=== PATIENT | male | born 1960 | race Caucasian/White ===

== ENCOUNTER 2017-06-28 08:07 | Day surgery (SDC) | payer OTHER ==
--- NOTE | 2017-06-27 21:30 | HP ---
PREOPERATIVE HISTORY AND PHYSICAL: DATE OF SURGERY/ADMISSION: 06/28/17 [facility] ATTENDING SURGEON: Venecia Stoddard MD * (DICTATED BY MARCELINA CORCORAN) PROCEDURE: Right ring finger flexor tendon repair. CHIEF COMPLAINT: Right ring finger flexor tendon rupture. HISTORY OF PRESENT ILLNESS: This is a 56-year-old male who injured his right ring finger on 06/20/17. 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 After that, he was not able to bend his finger all the way. He was seen initially at [facility] and had x-rays taken, which showed a fracture of the distal phalanx on the volar aspect. The fracture is minimally displaced. The patient was referred to Dr. Stoddard for followup and further treatment considerations. The patient denies any associated numbness or tingling. After review of x-rays and evaluation by Dr. Stoddard, it is recommended he undergo surgical intervention at this time in the form of a right ring finger flexor tendon repair. The patient has consented to proceed. PAST MEDICAL HISTORY: Unremarkable. PAST SURGICAL HISTORY: Appendectomy. CURRENT MEDICATIONS: None. ALLERGIES: No known drug allergies. FAMILY HISTORY: Heart disease and hypertension. 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 He denies tobacco use and recreational drug use. He does admit to alcohol use on occasion. REVIEW OF SYSTEMS: General: Negative for fevers, chills, or night sweats. No known anesthesia problems. HEENT: Negative for headache, lightheadedness, or syncopal episodes. Integumentary: Negative for abrasions, lesions, or open wounds. Cardiothoracic: Negative for hypertension, chest pain, palpitations, or edema. Pulmonary: Negative for shortness of breath with exertion, chronic cough, or COPD. GI: Negative for nausea, vomiting, diarrhea, constipation, or GERD. : Negative for nocturia, urinary frequency, urgency, history of UTIs, or kidney problems. Musculoskeletal: Positive for current complaint. Negative for chronic or intermittent back pain or history of fractures. Neurological: Negative for paresthesias, numbness, history of seizure, stroke, or epilepsy. Endocrine: Negative for diabetes and thyroid issues. Hematologic : Negative for easy bruising, anemia, excessive bleeding, or history of DVT. Infectious Disease: Negative for history of MRSA, hepatitis C, or HIV. PHYSICAL EXAMINATION GENERAL: Well-developed, well-nourished 56-year-old male in no acute distress. VITAL SIGNS: Height 5 feet 3 inches, weight 155 pounds. Pulse rate 72, blood pressure 108/74. HEENT: Normocephalic and atraumatic. Pupils are equal, round, and reactive to light and accommodation. Extraocular movements intact. NECK: Supple. No palpable lymph nodes. Throat is clear. PULMONARY: Lungs are clear to auscultation bilaterally. No wheezes, rales, or rhonchi. CARDIOVASCULAR: Regular rate and rhythm. S1 and S2. No murmurs, rubs, or gallops. No edema. ABDOMEN: Positive bowel sounds, soft, and nontender. NEUROLOGIC: Alert and oriented x3. Cranial nerves II through XII are intact. SENSATION: Intact to light touch. MUSCULOSKELETAL: On exam of his right ring finger, there is mild swelling along the length. He has active PIP joint flexion, but no active DIP joint flexion. He does have passive DIP flexion and is able to fully extend. His neurovascular function is intact. Skin is intact. IMAGING STUDIES: AP, lateral, and oblique of the right ring finger show a fracture where the flexor digitorum profundus tendon inserts on the distal phalanx. It is minimally displaced and not retracted. ASSESSMENT: Flexor digitorum profundus rupture of right ring finger with fracture fragments. PLAN/RECOMMENDATIONS: The patient is scheduled to undergo a right ring finger flexor tendon repair with Dr. Stoddard on 06/28/17. He will return to the office 10 to 14 days postop for followup and suture removal. A prescription for [place] was e- scribed to the patient's pharmacy for postoperative pain management. MARCELINA CORCORAN [id number]/[facility] #: [id number] ROSIE
[~2017-06-28 08:07] MED LIST: Buffered Lidocaine 0.9% SYRIN* 5 ML/SYR SYRINGE INTRADERM ONE
[2017-06-28] MEDS ORDERED: ceFAZolin 2 GM PREMIX(*) 2 GM/50 ML BAG IVPB ONE (08:33)
[2017-06-28] MEDS ORDERED: Midazolam* 1 MG/ML 5 ML VIAL (5 MG) ONE (09:46)
[2017-06-28] MEDS ORDERED: Lidocaine 1% INJ* 10 MG/ML 30 ML SDV ONE ×2 (09:52→10:00)
[2017-06-28] MEDS ORDERED: fentaNYL* 50 MCG/ML 2 ML VIAL (100 MCG VIAL) ONE (10:02)
[2017-06-28 11:00] VITALS: BP 104/69
[2017-06-28] MEDS ORDERED: Propofol* 10 MG/ML 20 ML BTL IV PUSH ONE (11:01)
--- NOTE | 2017-06-29 04:53 | OP ---
DATE OF OPERATION: 06/28/17 - [facility] DATE OF : 62 SURGEON: Venecia Stoddard MD GUEST SERVICES ASSISTANT: MARCELINA Ramirez ANESTHESIOLOGIST: Elvin Peters MD ANESTHESIA: Local, MAC. PRE-OP DIAGNOSIS: Flexor tendon rupture of the right ring finger. POST-OP DIAGNOSIS: Flexor tendon rupture of the right ring finger. OPERATIVE PROCEDURE: Flexor tendon repair, right ring finger. ESTIMATED BLOOD LOSS: Zero. TOURNIQUET TIME: About 45 minutes. INDICATION FOR PROCEDURE: Oswaldo is a 56-year-old male who was trying to start his lawnmower, it pulled back and caused an injury to his right ring finger. Since then, he cannot flex the DIP joint of his right ring finger. X-ray shows a large fracture avulsion fragment attached to his FDP tendon, and he cannot actively flex his right ring finger DIP joint. He presents for right ring finger flexor tendon repair. DESCRIPTION OF PROCEDURE: The patient was brought to the operating room, was given a sedation anesthetic and a digital block with 10 cc of 1% plain lidocaine. Skin of his right hand and forearm was prepped and draped in the usual sterile fashion. The hand and forearm were exsanguinated and the tourniquet elevated to 250 mmHg. A Brandy incision was made across the DIP flexion crease of the right ring finger. We dissected sharply down to the flexor tendon sheath. There was an avulsion fracture of the distal phalanx at the attachment of the FDP tendon. The tendon was in good condition and was well attached to the fragment. We were able to flip the fragment back down and reduced the fracture nicely. The flexor tendon sheath was intact. Two 4-0 Prolene sutures were used to make a grasping suture of the flexor tendon, one was placed through the bony fragment and the other over top of the bony fragment. We then drilled two holes through the distal phalanx out on to the fingernail with Kartik needles and the sutures were passed through the bone tunnels and out the top of the fingernail and tied over a button on the fingernail. This reduced the fracture perfectly and the ring finger had very nice tenodesis position. The sutures were tied over the button. The wound was copiously irrigated with saline and the skin edges reapproximated with 4-0 nylon suture. The wound was dressed with Xeroform, 4x4, Webril, and a dorsal extension blocking splint. The patient tolerated the procedure well and was brought to the recovery room in good condition. [id number]/[facility] #: [id number] ROSIE
== END 2017-06-28 11:20 | disposition home or self-care (01) ==
LOC: OREAST 08:07
PROVIDERS: ATTEND Orthopaedic Surgery
DX: S66.114A Strain of flexor muscle, fascia and tendon of right ring finger at wrist and hand level, initial encounter (principal); X50.0XXA Overexertion from strenuous movement or load, initial encounter; Y92.096 Garden or yard of other non-institutional residence as the place of occurrence of the external cause
CPT/HCPCS: J0690; J2001; J2250; J2704; J3010

== ENCOUNTER 2017-11-18 09:03 | Day surgery (SDC) | payer OTHER ==
--- NOTE | 2017-11-14 11:16 | HP ---
PREOPERATIVE HISTORY AND PHYSICAL: DATE OF SURGERY/ADMISSION: 11/18/17 [facility] ATTENDING SURGEON: Venecia Stoddard MD * (DICTATED BY MARCELINA CORCORAN) PROCEDURE: Right ring finger flexor tenolysis and right wrist carpal tunnel release. CHIEF COMPLAINT: Inability to fully flex right ring finger DIP joint after flexor tendon repair, right wrist carpal tunnel syndrome, right hand numbness and tingling. HISTORY OF PRESENT ILLNESS: This is a 57-year-old male who underwent a right ring finger flexor tendon repair in June 2017. Despite following postop protocol, he has not regained full active motion at the DIP joint. He is also complaining of numbness and tingling in the right hand primarily the thumb, index and middle fingers. This has been ongoing for the past couple of months. An EMG nerve conduction study shows severe right carpal tunnel syndrome. The patient has consented to proceed with surgical intervention for both of these problems in the form of a right ring finger, flexor tenolysis and a right wrist carpal tunnel release. PAST MEDICAL HISTORY: Unremarkable. PAST SURGICAL HISTORY: 1. Right ring finger flexor tendon repair. 2. Appendectomy. MEDICATIONS: None. ALLERGIES: No known drug allergies. FAMILY HISTORY: Congestive heart failure and hypertension. SOCIAL HISTORY: The patient is employed at [employer] in [employer]. He denies tobacco use and recreational drug use. He does drink alcohol on occasion. REVIEW OF SYSTEMS: General: Negative for fevers, chills or night sweats. No known anesthesia problems. HEENT: Negative for headache, lightheadedness or syncopal episodes. Integumentary: Negative for abrasions, lesions or open wounds. Cardiothoracic: Negative for hypertension, chest pain, palpitations or edema. Pulmonary: Negative for shortness of breath with exertion, chronic cough , COPD. GI: No diarrhea, constipation or GERD. : Negative for nocturia, urinary frequency, urgency, history of UTI or kidney problems. Musculoskeletal : Positive for current complaint. Negative for chronic or intermittent back pain or history of fractures. Neurologic: Positive for numbness and tingling in the right hand median nerve distribution. Negative for history of seizure, stroke or epilepsy. Endocrine: Negative for diabetes or thyroid issues. Hematologic: Negative for easy bruising, anemia, excessive bleeding or history of DVT. Infectious Disease: Negative for history of MRSA, hepatitis C or HIV. PHYSICAL EXAMINATION GENERAL: Well-developed, well-nourished 57-year-old male in no acute distress. VITAL SIGNS: Height 5 feet 3 inches, weight 155 pounds. Pulse rate 68, blood pressure 112/76. HEENT: Normocephalic, atraumatic. Pupils are equal, round and reactive to light and accommodation. Extraocular movements are intact. Throat is clear. NECK: Supple. No palpable lymph nodes. PULMONARY: Lungs are clear to auscultation bilaterally. No wheezes, rales or rhonchi. CARDIOVASCULAR: Regular rate and rhythm. S1, S2. No murmurs, rubs or gallops. No edema. ABDOMEN: Positive bowel sounds. Soft, nontender. MUSCULOSKELETAL: On exam of the right hand and the right ring finger, he has a well-healed surgical scar. He is unable to fully actively flex the DIP joint of the finger, but has good motion of the PIP joint and good extension of the finger. He has a positive Tinel sign at the right wrist median nerve, decreased sensation in the median nerve distribution. No thenar waisting. Some weakness with thumb abduction. NEUROLOGIC: Alert and oriented x3. Cranial nerves II through XII are intact. There is slight decrease in sensation in the median nerve distribution right hand. DIAGNOSTIC STUDIES: EMG nerve conduction study shows severe right carpal tunnel syndrome. ASSESSMENT/PLAN: Right ring finger tendon adhesions following a flexor tendon repair, right wrist carpal tunnel syndrome. The patient is scheduled to undergo a right ring finger flexor tenolysis and a right wrist carpal tunnel release with Dr. Stoddard on 11/18/17. He will return to the office 10 to 14 days postop for followup and suture removal. A prescription for [place] was e-scribed to the patient's pharmacy for postoperative pain management. MARCELINA CORCORAN [id number]/[facility] #: [id number] ROSIE
[~2017-11-18 09:03] MED LIST changes: +Ibuprofen TAB* 400 MG ONE; +Ibuprofen TAB* 400 MG PO ONE; +Sodium Citrate/Citric Acid* 15 ML UDC ONE; +Sodium Citrate/Citric Acid* 15 ML UDC PO ONE
[2017-11-18] MEDS ORDERED: ceFAZolin 2 GM PREMIX (*) 2 GM/50 ML BAG IVPB ONE (09:16)
[2017-11-18] MEDS ORDERED: Lidocaine 1% INJ* 10 MG/ML 30 ML SDV ONE (10:35)
[2017-11-18] MEDS ORDERED: fentaNYL* 50 MCG/ML 2 ML VIAL (100 MCG VIAL) ONE (11:18)
[2017-11-18] MEDS ORDERED: Midazolam* 1 MG/ML 2 ML VIAL (2 MG) ONE (11:21)
[2017-11-18] MEDS ORDERED: Propofol* 10 MG/ML 20 ML BTL IV PUSH ONE (12:04)
[2017-11-18 12:53] VITALS: BP 131/80
[2017-11-18] MEDS ORDERED: HYDROcodone/ACETAMIN 5-325 MG* 1 TAB ONE (12:54)
--- NOTE | 2017-11-19 00:02 | OP ---
CC: Dr. Stoddard OPERATIVE REPORT: DATE OF OPERATION: 11/18/17 DATE OF : 62 SURGEON: Venecia Stoddard MD TREE CUTTER: MARCELINA Ramirez ANESTHESIA: Local MAC. PRE-OP DIAGNOSIS: Status post ring finger flexor tendon repair and right carpal tunnel syndrome. POST-OP DIAGNOSIS: Status post ring finger flexor tendon repair and right carpal tunnel syndrome. OPERATIVE PROCEDURE: Right ring finger flexor tenolysis and carpal tunnel release. ESTIMATED BLOOD LOSS: Zero. TOURNIQUET TIME: About 45 minutes. INDICATION FOR PROCEDURE: Oswaldo is a 57-year-old male who suffered an injury of his right ring finge r. He had a flexor digitorum profundus avulsion with a bony fragment from his distal phalanx, this w as repaired but he has limited motion of DIP joint. He presents for flexor tenolysis. In the meanti me, he has developed carpal tunnel syndrome with numbness and tingling in median nerve distribution a nd he presents for carpal tunnel release. DESCRIPTION OF PROCEDURE: The patient was brought to the operating room and was given a sedation ane sthetic and a local infiltration of 10 cc of 1% plain lidocaine in the carpal tunnel and additional 1 0 cc as digital blocks to the right ring finger. The skin of his upper extremity was prepped and flaquita ped in the usual sterile fashion. The hand and forearm were exsanguinated and the tourniquet elevate d to 250 mmHg. Brandy incisions were made over the ring finger and we dissected through the subcutan eous tissue. Skin flaps were retracted by the medical surgical tech, Chelita Wade, and the digital ne urovascular bundles were dissected out and carefully protected by the medical surgical tech, Chelita Velez ing. The A3 and A5 pulleys were incised to give us access to the flexor tendon sheath. There were abu ndant adhesions over the distal portion of the flexor tendon sheath all the way to the PIP joint. Th e flexor digitorum profundus was adherent to the flexor digitorum superficialis. All of the adhesion s were at least well preserving the A4 anthony and upon pulling on the tendon, I was able to gain some flexion of the DIP joint, however, even with passive motion, I was not able to regain full flexion p resumably due to some degenerative change from the fracture fragment. Once the tendon was completely loose, the wound was irrigated and the skin edges were reapproximated with 4-0 nylon suture. A longitudinal incision was made in the palm in line with the ring finger. We dissected through the subcutaneous tissue down to the transverse carpal ligament. Ligament was divided sharply with the kni fe and then more proximally with the scissors. The nerve was dissected free from the surrounding tis parminder and there is an area of moderate compression in the mid portion of the ligament. The wound was i rrigated and the skin edges were reapproximated with 4-0 nylon suture. The wounds were dressed with Xeroform, 4x4, Webril, an Guillermo wrap and [place]. The patient tolerated the procedure well and was broug ht to the recovery room in good condition. [id number]/[facility] #: [id number]
== END 2017-11-18 13:02 | disposition home or self-care (01) ==
LOC: OREAST 09:03
PROVIDERS: ATTEND Orthopaedic Surgery
DX: M25.641 Stiffness of right hand, not elsewhere classified (principal); G56.01 Carpal tunnel syndrome, right upper limb
CPT/HCPCS: A9270-GY; J0690; J2250; J2704; J3010